=== PATIENT | male | born 1980 | race Caucasian/White ===

== ENCOUNTER → 2020-12-29 06:38 | Outpatient (CLI) | payer OTHER, SELFPAY ==
[2020-12-30 14:41] LABS: SARS-CoV-2 RNA PCR Negative
== END ==
PROVIDERS: PCP Family Medicine; Visit Provider Physician Assistant
DX: R68.89 Other general symptoms and signs (principal); Z20.822 Contact with and (suspected) exposure to COVID-19
CPT/HCPCS: C9803; U0003; U0005

== ENCOUNTER → 2021-02-15 13:17 | Outpatient (CLI) | payer OTHER, SELFPAY ==
--- NOTE | ~2021-02-15 | XR_ITS ---
XR lumbar spine 2-3V DATE: 02/15/2021 13:55 INDICATION: Chronic low back pain TECHNIQUE: AP, lateral, coned lateral lumbosacral views COMPARISON: None FINDINGS: Spina bifida occulta at S1. No fracture or bone destruction or spondylolisthesis. Lumbar and lumbosacral interspaces are well pre served. The lumbar pedicles are intact. The sacroiliac joints appear normal. IMPRESSION: No significant abnormality Reviewed, dictated and finalized at location A. IMPRESSION: No significant abnormality
== END ==
PROVIDERS: Visit Provider Chiropractor
DX: M54.5 Low back pain (principal)
CPT/HCPCS: 72100

== ENCOUNTER 2023-08-09 07:28 | Day surgery (SDC) | payer OTHER, SELFPAY ==
[2023-07-17 10:52] VITALS: BMI 26.9
[2023-08-09 09:01] VITALS: BP 136/87; PULSE 89; RESP 16; TEMP 36.8; O2SAT 98
[2023-08-09] MEDS: LACTATED RINGERS 1,000 ML 150 ML IV CONT (09:08)
--- NOTE | 2023-08-09 09:24 | WPDANESEPPF ---
Anes - Initial Pre Proc Eval Procedure: Operation Date: 08/09/23 10:30 Proposed Procedures p Diagnostic Colonoscopy - Yohannes Chilel MD Date/Time: 08/09/23 09:24 Surgeon: Yohannes Chilel MD Pre Op Diagnosis: Hemorrhage of anus and rectum Patient Data Age: 43 Gender: M Height: 1.77 m Weight: 83 kg Last Vital Signs Temp 36.8 C 08/09/23 09:01 Pulse 89 08/09/23 09:01 Resp 16 08/09/23 09:01 BP 136/87 08/09/23 09:01 Pulse Ox 98 08/09/23 09:01 O2 Del Method Room Air 08/09/23 09:01 Allergies Allergy/AdvReac Type Severity Reaction Status Date / Time No Known Allergies Allergy Verified 08/09/23 09:00 Home Medications Medication Instructions Recorded Confirmed Type No Home Medications 05/14/21 07/24/23 History sodium,potassium,mag sulfates 17.5 See Rx Instructions PO .COMPLEX 07/17/23 07/24/23 Rx gram-3.13 gram-1.6 gram oral soln #354 mL (Suprep Bowel Prep Kit) Patient hx anesthesia problems: none Family hx anesthesia problems: none Results Review: All pre-operative results and documents have been reviewed as part of the pre-operative evaluation. [facility]LY [facility] Past Medical History Medical History Elevated LDL cholesterol level Hearing loss of both ears Hereditary hearing loss Surgical History Surgical History History of stapedectomy LT ear 2020 Family History Family History Father Hypertension Nonrheumatic aortic (valve) insufficiency valve replacement Bicuspid aortic valve Mother No problems noted. Social History Social History (Updated 07/13/23 @ 16:31 by Paige Malave) Social History: Smoking status: Never smoker Second hand tobacco smoke exposure: No Alcohol intake: current Alcohol use details: socially Substance use: never Substance use type: does not use Do You Feel Safe in your Home?: Yes Lack of Transportation: No Lack of Food: Never True Current Housing: I Have Housing Concerned About Future Housing: No Difficulty Paying Gas/Electric Bills: No Difficulty Paying for Meds: No Currently Unemployed: No Education: Don't Know Difficulty w/ Childcare or Family Care: No Living arrangements: with family 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 Gender identity (if verbalized by the patient): Male Sexual Orientation (if Verbalized by the Patient): Straight or Heterosexual Anes - Eval Final PreProcedure Day of Procedure 08/09/23 09:24 Patient weight: overweight Heart: regular rate and rhythm Lungs: clear to auscultation Airway: Mallampati scale class II Neurological: alert and oriented Last oral intake: >/= 8 hours ASA classification: I Emergent: no Anesthetic plan: proceed Anesthesia type and monitoring: general GIVS and standard monitoring Results Review: All pre-operative results and documents have been reviewed as part of the pre-operative evaluation. Informed Consent: The patient's anesthetic plan and its attendant risks and benefits were discussed with the patient/family/POA. Questions were solicited and answers provided to the satisfaction of the patient/family/POA.
--- NOTE | 2023-08-09 09:27 | PM.HPGS ---
History of Present Illness History of Present Illness Consent: Risks, benefits, and alternatives have been discussed and questions answered. Patient agrees to proceed with procedure. Chief complaint: Hemorrhage of anus and rectum Narrative: Sampson Garcia is a 43 year old male presents for colonoscopy. Patient's current weight appetite and bowel movements are normal. He denies abdominal pain. Patient has on occasion noticed bright red blood per rectum with straining. One month ago had more significant amount of bleeding. Patient presents today for evaluation. He denies any weight loss. Family history is noncontributory. Review of Systems Review of Systems: Review of systems noncontributory. [facility] Past Medical History Medical History Elevated LDL cholesterol level Hearing loss of both ears Hereditary hearing loss Surgical History Surgical History History of stapedectomy LT ear 2020 Family History Family History Father Hypertension Nonrheumatic aortic (valve) insufficiency valve replacement Bicuspid aortic valve Mother No problems noted. Social History Social History (Updated 07/13/23 @ 16:31 by Paige Malave) Social History: Smoking status: Never smoker Second hand tobacco smoke exposure: No Alcohol intake: current Alcohol use details: socially Substance use: never Substance use type: does not use Do You Feel Safe in your Home?: Yes Lack of Transportation: No Lack of Food: Never True Current Housing: I Have Housing Concerned About Future Housing: No Difficulty Paying Gas/Electric Bills: No Difficulty Paying for Meds: No Currently Unemployed: No Education: Don't Know Difficulty w/ Childcare or Family Care: No Living arrangements: with family Occupation/Education: occupation 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 Gender identity (if verbalized by the patient): Male Sexual Orientation (if Verbalized by the Patient): Straight or Heterosexual Meds Home Medications and Allergies Home Medications Medication Instructions Recorded Confirmed Type No Home Medications 05/14/21 07/24/23 History sodium,potassium,mag sulfates 17.5 See Rx Instructions PO .COMPLEX 07/17/23 07/24/23 Rx gram-3.13 gram-1.6 gram oral soln #354 mL (Suprep Bowel Prep Kit) Allergies Allergy/AdvReac Type Severity Reaction Status Date / Time No Known Allergies Allergy Verified 08/09/23 09:00 Vital Signs Vital Signs - 24 hr 08/09/23 09:01 Temperature 98.2 F Pulse Rate 89 Respiratory Rate 16 Blood Pressure 136/87 Pulse Oximetry 98 Oxygen Delivery Room Air Exam Narrative: Physical exam reveals patient to be alert. Vital signs stable. HEENT exam is unremarkable. Is anicteric. Lungs are clear to auscultation and percussion. Heart is without murmur or extra sounds. Abdominal exam bowel sounds are present soft nontender with no organomegaly. Digital external rectal exam normal. Assessment and Plan Assessment and plan (1) Rectal bleeding: Code(s): K62.5 - Hemorrhage of anus and rectum Status: Acute Assessment and Plan: rectal bleeding. Plan for surveillance colonoscopy at this time. High-fiber diet is advised such as FiberCon 4 tablets daily.
[2023-08-09] MEDS: SIMETHICONE ORAL SUSPENSION 20 MG/0.3 ML 30 ML BOTTLE 0.6 ML IRRIGATION (10:32)
[2023-08-09 10:45] VITALS: BP 104/75; PULSE 68; RESP 16; O2SAT 100
[2023-08-09 10:55] VITALS: BP 128/80; PULSE 70; RESP 20; O2SAT 100
[2023-08-09 11:05] VITALS: BP 96/60; PULSE 74; RESP 20; O2SAT 100
--- NOTE | 2023-08-09 11:25 | WPDANESPN ---
Anes - Prog Note Post-Op Date/Time: 08/09/23 11:25 Cardiovascular status: normal Respiratory status: normal Airway patency: baseline Mental status: baseline Post-Op hydration status: normal Vital Signs: Last Vital Signs Temp 36.8 C 08/09/23 09:01 Pulse 74 08/09/23 11:05 Resp 20 08/09/23 11:05 BP 96/60 L 08/09/23 11:05 Pulse Ox 100 08/09/23 11:05 O2 Del Method Room Air 08/09/23 11:05 Pain Score (VAS): 0 I/O: Intake & Output 08/08/23 08/09/23 08/09/23 23:59 07:59 15:59 Intake Total 600 Balance 600 Post-procedural complaints: none Patient Feedback: Patient satisfied with anesthetic care. Other Findings: Patient vital signs back to baseline. Patient denies nausea and vomiting. Patient's pain under control. Patient OK for discharge.
== END 2023-08-09 11:11 | disposition home or self-care (01) ==
PROVIDERS: PCP Family Medicine; Visit Provider Internal Medicine Gastroenterology
PROC: 0DJD8ZZ Inspection of Lower Intestinal Tract, Via Natural or Artificial Opening Endoscopic (ICD-10-PCS; CPT 45378; principal; 2023-08-09 10:30)
DX: K62.5 Hemorrhage of anus and rectum (principal); K64.4 Residual hemorrhoidal skin tags
CPT/HCPCS: 45378

== ENCOUNTER 2023-11-27 11:28 | Emergency (ER) | payer OTHER, SELFPAY ==
[2023-11-27 11:38] VITALS: BP 143/80; PULSE 83; RESP 18; TEMP 36.6; O2SAT 97
[2023-11-27 11:39] VITALS: BP 143/80; PULSE 83; RESP 18; TEMP 36.6; O2SAT 97
--- NOTE | 2023-11-27 11:54 | ED.URI ---
HPI - URI/Sore Throat General Chief Complaint: Upper Respiratory Infection Stated Complaint: throat pain Time Seen by Provider: 11/27/23 11:55 History of Present Illness HPI Narrative: 43-year-old male presented for complaint of sore throat for 4 days. Endorses painful swallow. At the onset right ear pain and headache which have improved. Denies shortness of breath, wheezing, nausea vomiting diarrhea, fevers or chills. Related Data Allergies Allergy/AdvReac Type Severity Reaction Status Date / Time No Known Allergies Allergy Verified 11/27/23 11:39 Review of Systems Review of Systems: CONSTITUTIONAL: Denies body aches, fever, chills, or sweats. EYES: Denies visual changes, redness, or discharge. ENT: Reports sore throat Denies rhinorrhea, congestion, or otalgia. CARDIOVASCULAR: Denies chest pain, palpitations, or edema. RESPIRATORY: Denies dyspnea. GASTROINTESTINAL: Denies abdominal pain, nausea, vomiting, or diarrhea. SKIN: Denies rash, itching, or wounds. NEUROLOGIC: Denies headache [facility] Past Medical History Medical History Elevated LDL cholesterol level Hearing loss of both ears Hereditary hearing loss Surgical History Surgical History History of stapedectomy LT ear 2020 Family History Family History Father Hypertension Nonrheumatic aortic (valve) insufficiency valve replacement Bicuspid aortic valve Mother No problems noted. Social History Social History Social History: Smoking status: Never smoker Second hand tobacco smoke exposure: No Alcohol intake: current Alcohol use details: socially Substance use: never Substance use type: does not use Do You Feel Safe in your Home?: Yes Lack of Transportation: No Lack of Food: Never True Current Housing: I Have Housing Concerned About Future Housing: No Difficulty Paying Gas/Electric Bills: No Difficulty Paying for Meds: No Currently Unemployed: No Education: Don't Know Difficulty w/ Childcare or Family Care: No Living arrangements: with family Occupation/Education: occupation 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 EYES: conjunctivae clear ENT: Mucous membranes moist. TM pearly tello with normal light reflex bilaterally; no tragal tenderness. Oropharynx severely erythematous without lesions. Tonsils enlarged 2+ and without exudate. No drooling, no hoarseness, no trismus, uvula midline. No tripod positioning, hot potato voice, or soft palate swelling. NECK: Supple. Bilateral anterior cervical lymphadenopathy CHEST: Clear to auscultation, breath sounds equal. No respiratory distress, speaks in full sentences. HEART: Regular rate and rhythm. No murmur heard. SKIN: Warm, dry, no rash. NEURO: Alert and oriented x3. Course Course Emergency Course: Patient is aware of diagnosis, understands and agrees to treatment plan. Anticipatory guidance given. Patient agrees to follow-up as directed and is aware of reasons to seek care at the emergency department. Portions of this record may have been created with voice recognition software Level of Care: Express Care Visit Vital Signs Vital signs: Vital Signs Temperature 97.8 F 11/27/23 11:38 Pulse Rate 83 11/27/23 11:38 Respiratory Rate 18 11/27/23 11:38 Blood Pressure 143/80 H 11/27/23 11:38 Pulse Oximetry 97 11/27/23 11:38 Oxygen Delivery Room Air 11/27/23 11:38 Temperature 97.8 F 11/27/23 11:39 Pulse Rate 83 11/27/23 11:39 Respiratory Rate 18 11/27/23 11:39 Blood Pressure 1
== END 2023-11-27 12:03 | disposition home or self-care (01) ==
PROVIDERS: Emergency Provider Nurse Practitioner Family; PCP Family Medicine
DX: J02.0 Streptococcal pharyngitis (principal); E78.00 Pure hypercholesterolemia, unspecified
CPT/HCPCS: 87880; 99213; G0463

== ENCOUNTER 2025-02-19 14:47 | Emergency (ER) | payer BC, SELFPAY ==
--- OUTSIDE RECORDS SUMMARY | 2025-02-19 14:51 | XMS_ITS | Continuity of Care Document ---
Author Organization [facility] Address [address] [place] [address] Phone Care Team Providers Care Used Car Make Ready Worker Name Role Phone Oneal OD, Yohannes Unavailable Unavailable Advance Directives Directive Yes / No Effective Date File Name No Information Encounters Encounter Description Practice Location Reason(s) For Visit Diagnoses Date Provider Providers Copied on Encounter [facility], [id number] [place] [address] [address], [place], [place], [id number], [place] tel:[phone] [facility] Syed Lynch No Information Feb-2 5-200 5 Oneal OD Yohannes. [address] , [address], [place], [address], [place]. tel:[phone] Family History Family Member Type Diagnosis Age At Onset No Information Payers Payer name Insurance type Covered democrat ID Authoriza tidavid(s) [facility] CI [id number] Social History Type Description Quantity Date Captured Comments Sex Male Smoking Status No Information Chief Complaint And Reason For Visit No Information Reason For Referral Reason For Referral No Information History Of Present Illness Encounter Date Complaint History Of Prese nt Illness No Information Functional Status Date Functional Assessmen t No Information Instructions Date Instruction Additional Infor mation No Information Assessments Type Assessment Date No Information Patient Care Teams Name Effective Dates (start - stop) Status Members No Information
--- OUTSIDE RECORDS SUMMARY | 2025-02-19 14:51 | XMS_ITS | Clinical Summary ---
Author Organization [facility] Address [address] [place] [address] Care Team Providers Care Automatic Machines Supervisor Name Role Phone No, Physician Primary Care Provider [phone] Omari Gupta MD Unavailable [phone] Allergies No known active allergies Medications ofloxacin (FLOXIN) 0.3 % otic solution Administer 5 drops into the left ear 4 (four) times a day Begin 1 week post op 5 mL 3 1 Active HYDROcodone-ruslan taminophen ([place]) 5-325 mg per tabletIndicatio ns:Pain Take 1 tablet by mouth every 6 (six) hours as needed for pain 15 tablet 1 Active ID NOW COVID-19 Test Kit kit USE 1 KIT TODAY DIRECTED 1 Active Active Problems No known active problems Family History Medical History Relation Name Comments No Known Problems Father No Known Problems Mother Relation Name Status Comments Father Mother Social History Tobacco Use Types Packs/Day Years Used Date Smoking Tobacco: Never Personal Safety Answer Date Recorded Getting School Help Needed Not on file 07/08 Sex and Gender Information Value Date Recorded Sex Assigned at Not on file 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
--- OUTSIDE RECORDS SUMMARY | 2025-02-19 14:51 | XMS_ITS | Clinical Summary ---
Author Organization [facility] Address [address] [place] [address] Care Team Providers Care Tax Services Professional Name Role Phone Unavailable Primary Care Provider Unavailabl e Source Comments [facility],non-owned Affiliates and Associated Physician Practices is amultiple site organization consisting of ambulatory clinics and hospital sitesin [place], [place], [place] and [place]. This disclosure is being madepursuant to the Care Everywhere program and may not contain all information available regarding this patient. Last updated 18.[facility] [employer] Allergies No known active allergies Immunizations Immunization Administration Dates Next Due INFLUENZA VACCINE, QUADR. (F LUZONE; FLULAVAL; FLUARIX; AFLURIA QUADRIVALENT; 6MO+), 0.5 ML (IIV4) 04/15/2019 Social History Tobacco Use Types Packs/Day Years Used Date Smoking Tobacco: Never Assessed Sex and Gender Information Value Date Recorded Sex Assigned at Not on file Legal Sex Male 12:38 PM CDT Gender Identity Not on file Sexual Orientation Not on file Plan of Treatment Health Maintenance Due Date Last Done Comments LIPID TESTING 1981 HIV SCREENING 1996 HEPATITIS C SCREENING 07/22/1999 DTAP/TDAP/TD VACCINES (1 - Tdap) 2000 HEPATITIS B VACCINE (1 of 3 - 19+ 3-dose series) 2000 HPV VACCINE (1 - 3-dose SCDM series) 2008 COVID-19 VACCINE ( - 2023-2 5 season) 2024 DEPRESSION SCREENING 07/10/2024 INFLUENZA VACCINE (#1) 2025 04/15/2019 ZOSTER VACCINE (1 of 2) 2031 HIB VACCINE Aged Out No longer eligi ble based on patient's age to complete this topic MENINGOCOCCAL (Group B) VACC INE SHARED DECISION-MAKING Aged Out No longer eligibl e based on patient's age to complete this topic MENINGOCOCCAL GROUPS A/C/Y/W VACCINE Aged Out No longer eligible b ased on patient's age to complete this topic PNEUMOCOCCAL VACCINE Aged Out No long er eligible based on patient's age to complete this topic Insurance [facility]
--- OUTSIDE RECORDS SUMMARY | 2025-02-19 14:56 | XMS_ITS | Continuity of Care Document ---
Author Organization [facility] Address [address] [place] [address] Phone Care Team Providers Care Business Team Leader Name Role Phone Oneal OD, Yohannes Unavailable Unavailable Advance Directives Directive Yes / No Effective Date File Name No Information Encounters Encounter Description Practice Location Reason(s) For Visit Diagnoses Date Provider Providers Copied on Encounter [facility], [address] [place] [address] [address], [place], [place], [id number], [place] tel:[phone] [facility] Syed Lynch No Information Feb-2 5-200 5 Oneal OD Yohannes. [address] , [address], [place], [address], [place]. tel:[phone] Family History Family Member Type Diagnosis Age At Onset No Information Payers Payer name Insurance type Covered republican ID Authoriza tidavid(s) [facility] CI [id number] Social History Type Description Quantity Date Captured [...]
[2025-02-19 14:57] VITALS: BP 126/79; PULSE 81; RESP 18; TEMP 36.6; O2SAT 97
--- NOTE | 2025-02-19 15:23 | ECG_ITS ---
Test Date: 2025-02-19 15:29:55 Measurements Intervals [place] Rate: 76 P: 38 UT: 153 QRS: 25 QRSD: 85 T: 11 QT: 362 QTc: 408 Interpretive Statements SINUS RHYTHM BASELINE ARTIFACT- I, II, III, AVR, AVL, AVF, V1-V3 NORMAL ECG No previous ECG available for comparison Electronically Signed On 02-19-2025 15:37:03 CDT by Tim Driscoll D.O.
--- NOTE | 2025-02-19 15:24 | ED.EAR ---
HPI - Ear Problem General Chief complaint: Ear Stated complaint: dizziness Time Seen by Provider: 02/19/25 15:05 Source: patient and RN notes reviewed Mode of arrival: ambulatory Limitations: no limitations History of Present Illness HPI Narrative: 44-year-old male presents Express Care complaining of dizziness since last night. Patient reports he is not constantly dizzy and states that is worse when he from sitting to standing, he states he feels like he is in motion with a occur. Patient said he has been flying recently, he just got back from [place] last night, also recently on a plane returning from [place]. Patient says he reports mild left ear pain from wears hearing aid insert into his ear. 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 Patient denies any vision changes, nausea, vomiting, chest pain, shortness of breath, difficulty breathing, leg swelling, leg pain, falls, injuries, blurry vision, fevers, body aches and, chills, cough, upper respiratory symptoms, or any other symptoms. Patient denies any significant past medical history. Related Data Allergies Allergy/AdvReac Type Severity Reaction Status Date / Time No Known Allergies Allergy Verified 02/19/25 14:50 Review of Systems Review of Systems: CONSTITUTIONAL: Denies fever, chills, or sweats. EYES: Denies visual changes, redness, or discharge. ENT: Denies rhinorrhea, congestion, sore throat, or otalgia. CARDIOVASCULAR: Denies chest pain, palpitations, lightheadedness, or edema. Positive for dizziness RESPIRATORY: Denies cough, difficulty breathing, orthopnea, or dyspnea. GASTROINTESTINAL: Denies abdominal pain, nausea, vomiting, or diarrhea. GENITOURINARY: Denies dysuria or hematuria. SKIN: Denies rash or itching. MUSCULOSKELETAL: Denies back pain, joint pain, or myalgia. NEUROLOGIC: Denies headache, loss of consciousness, seizures, focal weakness, slurred speech, facial droop, numbness, or weakness. PSYCHIATRIC: Denies anxiety or depression. All other systems reviewed are negative, except as documented in HPI. [facility] Past Medical History Medical History Elevated LDL cholesterol level Hereditary hearing loss Hearing loss of both ears Surgical History Surgical History History of stapedectomy LT ear 2020 Family History Family History Father Hypertension Nonrheumatic aortic (valve) insufficiency valve replacement Bicuspid aortic valve Mother No problems noted. Social History Social History Social History: Smoking status: Never smoker Second hand tobacco smoke exposure: No Alcohol intake: current Alcohol use details: socially Substance use: never Substance use type: does not use Do You Feel Safe in your Home?: Yes Lack of Transportation: No Lack of Food: Never True Current Housing: I Have Housing Concerned About Future Housing: No Difficulty Paying Gas/Electric Bills: No Difficulty Paying for Meds: No Currently Unemployed: No Education: Don't Know Difficulty w/ Childcare or Family Care: No Living arrangements: with family Occupation/Education: occupation 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 There is no relevant family history pertinent to the patient complaint. Exam Narrative: GENERAL: This is a well-nourished, well-developed adult, in no apparent distress. They are non ill-appearing, nontoxic appearing. HEAD: normocephalic, atraumatic. EYES: Sclera clear/white. Conjunctiva normal. Vision is grossly intact. Extraocular movements intact. Pupils PERRLA EARS: External ears normal, auditory canals clear and without drainage, TMs normal without perforation. Hearing grossly intact. Horizontal nystagmus towards the left present during Hackberry-Hallpike maneuver. NOSE: External nose normal with no obvious nasal discharge, nasal turbinates without redness, no rhinorrhea. THROAT: Mucous membranes moist, posterior pharynx clear, without erythema or swelling. Uvula midline. NECK: Neck supple, non-tender without lymphadenopathy, masses or thyromegaly. CARDIOVASCULAR: Regular rate and rhythm without murmurs, gallops, or rubs. RESPIRATORY: Clear to auscultation. Breath sounds equal bilaterally. No wheezes, rales, or rhonchi. Respiratory rate normal, respiratory effort nonlabored, no respiratory distress SKIN: warm, Dry, intact with no suspicious lesions or rash, good texture and turgor. NEURO: awake, alert, and oriented to person, place and time. There were no obvious focal neurologic abnormalities. Cranial nerve 2-12 grossly intact. No pronator drift. No limb ataxia. Speech is clear. No facial droop. Religious Activities Director strength 5/5 equal bilaterally. Arm strength 5/5 equal bilaterally. Leg strength 5/5 equal bilaterally. Normal dorsiflexion and plantar flexion. Normal sensation. Gait is steady. EXTREMITIES: No joint tenderness, effusion, or edema noted. No palpable cord. BACK: Nontender without deformity. No CVA tenderness. Course Course Emergency Course: Portions of this record may have been created with voice recognition software Level of Care: Express Care Visit Vital Signs Vital signs: Vital Signs Temperature 97.8 F 02/19/25 14:57 Pulse Rate 81 02/19/25 14:57 Respiratory Rate 18 02/19/25 14:57 Blood Pressure 126/79 02/19/25 14:57 Pulse Oximetry 97 02/19/25 14:57 Oxygen Delivery Room Air 02/19/25 14:57 Temperature 97.8 F 02/19/25 14:57 Pulse Rate 81 02/19/25 14:57 Respiratory Rate 18 02/19/25 14:57 Blood Pressure 126/79 02/19/25 14:57 Pulse Oximetry 97 02/19/25 14:57 Oxygen Delivery Room Air 02/19/25 14:57 Reviewed Medical Decision Making MDM Narrative Medical decision making narrative: EKG shows normal sinus rhythm without any ischemic findings. Patient likely has vertigo, positive Sha-Hallpike maneuver. Could be BPPV. Attempted Cami maneuver without relief. Patient reports dizziness is worse from lying to sitting. Symptoms appear to be peripheral in nature. No other neurological symptoms. NIH score 0. Neuro exam grossly unremarkable. Low suspicion for central vertigo or CVA. PERC score 0, Wells score of 0. Low suspicion for blood clot. No chest pain or shortness of breath. No leg pain or leg swelling. No recent surgeries. Will prescribe patient meclizine and have close follow-up PCP. Patient is reported he has a follow-up with his ENT on Monday, told to discuss his dizziness with his ENT this upcoming appointment. Strict ER precautions discussed if a specially develops headaches, vision changes, uncontrollable dizziness, nausea, vomiting, leg swelling, leg pain, chest pain, shortness of breath, difficulty breathing or any serious concerns. Discussed physical exam findings. Advised supportive measures and signs/symptoms to go to the ER. Pt is appropriate for outpt treatment and f/u. Differential Diagnosis Differential Diagnosis: Vertigo, BPPV, dizziness, vestibular disorder, CVA Vital Signs Vital Signs: Vital Signs Temperature 97.8 F 02/19/25 14:57 Pulse Rate 81 02/19/25 14:57 Respiratory Rate 18 02/19/25 14:57 Blood Pressure 126/79 02/19/25 14:57 Pulse Oximetry 97 02/19/25 14:57 Oxygen Delivery Room Air 02/19/25 14:57 Temperature 97.8 F 02/19/25 14:57 Pulse Rate 81 02/19/25 14:57 Respiratory Rate 18 02/19/25 14:57 Blood Pressure 126/79 02/19/25 14:57 Pulse Oximetry 97 02/19/25 14:57 Oxygen Delivery Room Air 02/19/25 14:57 ECG Data EKG #1: ECG completion date: 02/19/25 ECG completion time: 15:29 Prior ECG tracings: not available for review EKG Interpretation: normal rate, no ectopy, no ST changes, normal QRS, normal QT and no acute changes Critical Care Time Critical Care Time Critical Care Time: No Discharge Plan Discharge Clinical Impression: Dizziness Patient Disposition: Home Condition: Stable Instructions: Vertigo (ED) Additional Instructions: Your EKG is normal sinus rhythm. Your symptoms may be related to vertigo. Please take meclizine as directed. Do not drive or operate machinery while taking meclizine as it may make you drowsy. Follow-up with your PCP in 3-5 days. Rest and drink plenty of fluids. Please go to the ER if you develop severe headaches, vision changes, uncontrollable dizziness, nausea, inability to walk, vomiting, leg swelling, leg pain, chest pain, shortness of breath, difficulty breathing or any serious concerns. Patient Language: Somali Prescriptions: New meclizine 25 mg tablet 25 mg PO TID PRN (Reason: dizziness) Qty: 10 0RF Follow-up/Referrals: Hiro,Corie [Other] Time of Disposition: 15:37
== END 2025-02-19 15:40 | disposition home or self-care (01) ==
DX: R42 Dizziness and giddiness (principal)
CPT/HCPCS: 93005; 99213; G0463